=== PATIENT | female | born 1950 | race Caucasian/White ===

== ENCOUNTER → 2017-07-28 | Day surgery (SDC) | payer MEDICARE, BC ==
[~2017-07-28] MED LIST: Midazolam 1 MG/ML 2 ML SDV ONE; Propofol 200 MG/20 ML SDV ONE; Sodium Chloride 0.9% 10 ML Syringe FLUSH PRN; fentaNYL 100 MCG/2 ML SDV ONE
[2017-07-28] MEDS: Lactated Ringers 1,000 ML IV SCH (13:48)
--- NOTE | 2017-07-28 14:21 | PCM.PN ---
- General Info Date of Service: 07/28/17 - Review of Systems Systems Review Comment:: 67-year-old female referred for colonoscopy. She has unexplained anemia. She is also had recent upper endoscopy which did not reveal a source of bleeding. She has noted a recent change in bowel pattern with more loose stools and lower abdominal pain which worsens throughout the day.Her past medical history is significant for breast cancer. She is medically stable to proceed today. I have discussed the proposed colonoscopy with the patient. Risks such as but not limited to bleeding and GI injury reviewed. She appears to understand and agrees to proceed. - Patient Data Vitals - Most Recent: Last Vital Signs Temp 98.1 F 07/28/17 13:25 Pulse 80 07/28/17 13:25 Resp 16 07/28/17 13:25 BP 136/64 07/28/17 13:25 Pulse Ox 99 07/28/17 13:25 Weight - Most Recent: 94.347 kg Med Orders - Current: Current Medications Lactated Ringer's (Ringers, Lactated) 1,000 mls @ 125 mls/hr IV ASDIRECTED MICHAEL Last Admin: 07/28/17 13:48 Dose: 125 mls/hr Sodium Chloride (Saline Flush) 10 ml FLUSH ASDIRECTED PRN PRN Reason: Keep Vein Open Discontinued Medications Fentanyl (Sublimaze) Confirm Administered Dose 100 mcg .ROUTE .STK-MED ONE Stop: 07/28/17 14:15 Midazolam HCl (Versed 1 Mg/Ml) Confirm Administered Dose 2 mg .ROUTE .STK-MED ONE Stop: 07/28/17 14:15 Propofol (Diprivan 20 Ml) Confirm Administered Dose 200 mg .ROUTE .STK-MED ONE Stop: 07/28/17 14:15 - Problem List Review Problem List Initiated/Reviewed/Updated: Yes - Assessment Assessment:: anemia Change in bowel habits - Plan Plan:: colonoscopy
--- NOTE | 2017-07-28 15:10 | PCM.OPNOTE ---
- General Post-Op/Procedure Note Date of Surgery/Procedure: 07/28/17 Operative Procedure(s): colonoscopy with biopsy Findings: extensive sigmoid diverticulosis without acute inflammation Otherwise normal appearing colon Pre Op Diagnosis: anemia. Change in bowel habits Post-Op Diagnosis: Diverticulosis Anesthesia Technique: MAC Primary Surgeon: Damion Delgado Pathology: biopsies of right and left colon Output, Urine Amount: 0 EBL in mLs: 3 Complications: None Condition: Good Free Text/Narrative:: Intake & Output 07/28/17 07/28/17 07/28/17 06:59 14:59 22:59 Intake Total 900 Balance 900
[2017-07-28 15:39] VITALS: BP 120/50
--- NOTE | 2017-07-29 08:55 | OR ---
Date of Procedure: 07/28/2017 PREOPERATIVE DIAGNOSIS: Anemia. POSTOPERATIVE DIAGNOSIS: Diverticulosis. OPERATIONS PERFORMED: Colonoscopy with biopsy. INDICATIONS FOR SURGERY: This 67-year-old female was noted to have unexplained anemia with recent upper endoscopy which did not show bleeding site. She has also had some lower abdominal pain. The patient was referred for a diagnostic colonoscopy. FINDINGS: No obvious source of chronic bleeding was seen during today's exam. The patient had extensive sigmoid diverticulosis with some tortuosity of the sigmoid colon; however, this does not appear to be acutely inflamed at this time. The remainder of the colon mucosa appeared normal. There were no visible signs of inflammation, ulceration, or evidence of bleeding at this time. DESCRIPTION OF PROCEDURE: The patient was taken to the operating room. She was given intravenous sedation, and with her in the left lateral decubitus position, digital rectal exam was performed showing no rectal masses. The Olympus colonoscope was inserted into the rectum. Retroflexed examination of the rectal canal was performed. The scope was then carefully advanced under direct visualization through the entire length of the colon until the cecum was reached. It was somewhat difficult through the sigmoid region, but eventually, the colon was able to be traversed and the cecum reached. Cecal acquisition was confirmed by noting the normal internal cecal anatomy including the appendiceal orifice and ileocecal valve. After examining the cecum, the scope was slowly withdrawn sequentially re-examining the colonic segments. During withdrawal of the scope, random biopsies were taken from the left and right sides of the colon to evaluate the patient's diarrhea symptoms. After the colon had been completely examined and with no sign of any complication, the scope was removed and the patient was taken from the operating room in satisfactory condition. ESTIMATED BLOOD LOSS: 3 mL. COMPLICATIONS: None. PROGNOSIS: Good. ABI Delgado MD /[id number]
== END | disposition home or self-care (01) ==
LOC: LL.SDS 12:59
PROVIDERS: ATTEND Surgery
DX: D64.9 Anemia, unspecified (principal); R19.4 Change in bowel habit; R10.30 Lower abdominal pain, unspecified; K63.89 Other specified diseases of intestine; K57.30 Diverticulosis of large intestine without perforation or abscess without bleeding; E11.42 Type 2 diabetes mellitus with diabetic polyneuropathy; Z79.4 Long term (current) use of insulin; I10 Essential (primary) hypertension; E78.5 Hyperlipidemia, unspecified; K21.9 Gastro-esophageal reflux disease without esophagitis; E66.9 Obesity, unspecified; Z79.899 Other long term (current) drug therapy
CPT/HCPCS: 00811; J2250; J2704; J3010; J7120

== ENCOUNTER 2019-01-04 08:04 | Day surgery (SDC) | payer MEDICARE, BC ==
[~2019-01-04 08:04] MED LIST changes: +Lactated Ringers 1,000 ML IV SCH; -Midazolam 1 MG/ML 2 ML SDV ONE; -Propofol 200 MG/20 ML SDV ONE; -fentaNYL 100 MCG/2 ML SDV ONE
[2019-01-04] MEDS ORDERED: Midazolam 1 MG/ML 2 ML SDV ONE ×2 (08:32→09:01)
[2019-01-04] MEDS ORDERED: Propofol 200 MG/20 ML SDV ONE ×2 (08:33→09:01)
--- NOTE | 2019-01-04 08:59 | PCM.HPR ---
H & P Addendum review - H & P Addendum Review Date of Original H & P: 12/21/18 Date Reviewed: 01/04/19 Time Reviewed: 08:59 Patient was Examined: No Changes
--- NOTE | 2019-01-04 09:40 | PCM.OPNOTE ---
- General Post-Op/Procedure Note Date of Surgery/Procedure: 01/04/19 Operative Procedure(s): L CTR Pre Op Diagnosis: L CTS Post-Op Diagnosis: Same Anesthesia Technique: Local, MAC Primary Surgeon: Edu Fletcher Anesthesia Provider: Ana Blancas Complications: None Condition: Good
[2019-01-04 11:09] VITALS: BP 123/66; PULSE 78
--- NOTE | 2019-01-04 11:18 | OR ---
Date of Procedure: 01/04/2019 PREOPERATIVE DIAGNOSIS: Left carpal tunnel syndrome. POSTOPERATIVE DIAGNOSIS: Left carpal tunnel syndrome. PROCEDURE: Left carpal tunnel release. ANESTHESIA: Local with IV sedation. DESCRIPTION OF PROCEDURE: The patient was brought to the procedure room where IV sedation was administered. Her left upper extremity was exsanguinated and tourniquet inflated. Her hand was prepped and draped sterilely. 3 mL of 1% lidocaine were injected in the palmar crease. A routine incision was made in the skin crease over the transverse carpal ligament and extended through the subcutaneous tissue and palmar aponeurosis. The transverse carpal ligament was identified and sharply incised until the median nerve was visible. The ligament was then split distally into the palm and then proximally into the wrist. Finger palpation and inspection revealed the constricting band to be completely released. The wound was irrigated and the skin closed with interrupted 4-0 Prolene vertical mattress sutures. Antibiotic ointment and a sterile bulky pressure dressing were applied. The patient tolerated the procedure well and returned to Recovery in stable condition. BLOOD LOSS: None. ABI CRISOSTOMO MD /[id number]
== END 2019-01-04 10:50 | disposition home or self-care (01) ==
LOC: LL.SDS 08:04
PROVIDERS: ATTEND Surgery
DX: G56.02 Carpal tunnel syndrome, left upper limb (principal); I10 Essential (primary) hypertension; E11.9 Type 2 diabetes mellitus without complications; Z79.4 Long term (current) use of insulin; Z79.899 Other long term (current) drug therapy; Z79.82 Long term (current) use of aspirin
CPT/HCPCS: 01830; 64721; 82962; J2001; J2250; J2704; J7120

== ENCOUNTER 2019-03-01 08:08 | Day surgery (SDC) | payer MEDICARE, BC ==
[~2019-03-01 08:08] MED LIST changes: -Lactated Ringers 1,000 ML IV SCH; +Midazolam 1 MG/ML 2 ML SDV ONE; +Propofol 200 MG/20 ML SDV ONE; +fentaNYL 100 MCG/2 ML SDV ONE
[2019-03-01] MEDS: Lactated Ringers 1,000 ML IV SCH (08:51)
[2019-03-01] MEDS ORDERED: Propofol 200 MG/20 ML SDV ONE (09:12)
[2019-03-01] MEDS ORDERED: fentaNYL 100 MCG/2 ML SDV ONE (09:12)
[2019-03-01] MEDS ORDERED: Midazolam 1 MG/ML 2 ML SDV ONE (09:12)
--- NOTE | 2019-03-01 09:14 | PCM.HPR ---
H & P Addendum review - H & P Addendum Review Date of Original H & P: 02/20/19 Date Reviewed: 03/01/19 Time Reviewed: 09:05 Patient was Examined: No Changes
[2019-03-01] MEDS: Bacitracin Oint 1 GM U/D Packet TOP ONE (09:33)
--- NOTE | 2019-03-01 09:44 | PCM.OPNOTE ---
- General Post-Op/Procedure Note Date of Surgery/Procedure: 03/01/19 Operative Procedure(s): R CTR Pre Op Diagnosis: R CTS Post-Op Diagnosis: Same Anesthesia Technique: Local, MAC Primary Surgeon: Edu LONG in mLs: 0 Complications: None Condition: Good
--- NOTE | 2019-03-01 12:39 | OR ---
Date of Procedure: 03/01/2019 PREOPERATIVE DIAGNOSIS: Right carpal tunnel syndrome. POSTOPERATIVE DIAGNOSIS: Right carpal tunnel syndrome. PROCEDURE: Right carpal tunnel release. ANESTHESIA: Local MAC. DESCRIPTION OF PROCEDURE: The patient was brought to the procedure room where she was placed in the supine position and IV sedation administered. Right hand and forearm were exsanguinated and tourniquet inflated. Hand and forearm were prepped with ChloraPrep and draped sterilely. 2 mL of 1% lidocaine was infiltrated in the palmar crease. An incision was made in the crease over the transverse carpal ligament and extended through the subcutaneous tissue and palmar aponeurosis until the transverse carpal ligament was identified. This was sharply incised until the median nerve was visible. The ligament was split distally into the palm and then proximally into the wrist. Finger palpation and inspection revealed all constricting bands to be released. The wound was closed with interrupted 4-0 Prolene vertical mattress sutures. Antibiotic ointment and a bulky sterile pressure dressing were applied. The patient tolerated the procedure well and returned to Recovery in stable condition. ABI CRISOSTOMO MD /[id number]
[2019-03-01 15:16] VITALS: BP 144/79; PULSE 82
== END 2019-03-01 11:10 | disposition home or self-care (01) ==
LOC: LL.SDS 08:08
PROVIDERS: ATTEND Surgery
DX: G56.01 Carpal tunnel syndrome, right upper limb (principal); I10 Essential (primary) hypertension; E11.9 Type 2 diabetes mellitus without complications; L02.31 Cutaneous abscess of buttock; Z68.38 Body mass index [BMI] 38.0-38.9, adult; E66.9 Obesity, unspecified; Z79.82 Long term (current) use of aspirin; Z79.4 Long term (current) use of insulin; Z79.899 Other long term (current) drug therapy
CPT/HCPCS: 82962; J2001; J2250; J2704; J3010; J7120

== ENCOUNTER 2020-07-15 09:01 | Emergency (ER) | payer MEDICARE, BC ==
--- NOTE | 2020-07-15 09:58 | EDM.PDOC ---
ED HPI GENERAL MEDICAL PROBLEM - General Chief Complaint: Laceration Stated Complaint: Fall at home, Surgical Incision reopened Time Seen by Provider: 07/15/20 09:01 Source of Information: Reports: Patient History Limitations: Reports: No Limitations - History of Present Illness INITIAL COMMENTS - FREE TEXT/NARRATIVE: Pt. presents to ER with complaints of dehiscence of surgical incision of L knee and facial laceration post fall. Pt. states that she fell at home today, which caused the incision from a recent knee replacement to open. She also stuck her face. causing a laceration to her chin. Pt. states that she did not feel dizzy or lightheaded prior to the fall. Denies any chest pain, shortness of breath, headache. Pt. tetanus is up to date. Pt. states that she is not experiencing any ru or deep pain in he knee, and she states that she is able to bear weight. She only complains of superficial pain associated with the soft tissue injury. Onset: Today Location: Reports: Face, Lower Extremity, Left Associated Symptoms: Denies: Confusion, Chest Pain, Cough, Diaphoresis, Fever/Chills, Headaches, Malaise, Nausea/Vomiting, Seizure, Shortness of Breath, Syncope, Weakness - Related Data Allergies Allergy/AdvReac Type Severity Reaction Status Date / Time No Known Allergies Allergy Verified 07/15/20 09:26 Home Meds: Home Meds Lisinopril 2.5 mg PO BEDTIME 01/19/16 [History] Zolpidem Tartrate [Ambien Cr] 12.5 mg PO BEDTIME 01/19/16 [History] DULoxetine [Cymbalta] 60 mg PO DAILY 01/20/16 [History] Insulin Aspart [Novolog Flexpen] 40 unit SQ QAM 01/20/16 [History] atorvaSTATin [Lipitor] 20 mg PO BEDTIME 01/20/16 [History] Omeprazole 40 mg PO BEDTIME 07/22/17 [History] Anastrozole [Arimidex] 1 mg PO BEDTIME 07/28/17 [History] Aspirin [Children's Aspirin] 81 mg PO BEDTIME 07/28/17 [History] Acetaminophen [Tylenol] 650 mg PO Q4H PRN 01/03/19 [History] Docusate Sodium [Colace] 100 mg PO BEDTIME 01/03/19 [History] Dulaglutide [Trulicity] 1.5 mg SQ Q7D 01/03/19 [History] Insulin Degludec [Tresiba] 84 unit SQ BEDTIME 01/03/19 [History] Levothyroxine [Synthroid] 50 mcg PO ACBREAKFAST 01/03/19 [History] polyethylene glycoL 3350 [MiraLAX] 17 gm PO BEDTIME PRN 01/03/19 [History] Insulin Aspart [NovoLOG] 20 units SUBCUT DAILY@1800 01/04/19 [History] sitaGLIPtin Phos/Metformin HCl [Janumet 50-1,000 MG] 1 tab PO DAILY 03/01/19 [History] traMADol [Ultram] 50 mg PO TID PRN 03/01/19 [History] Insulin Aspart [NovoLOG] 30 units SUBCUT DAILY@1200 07/15/20 [History] Pregabalin [Lyrica] 200 mg PO TID 07/15/20 [History] Past Medical History HEENT History: Reports: Other (See Below) Other HEENT History: wears reading glasses Cardiovascular History: Reports: High Cholesterol, Hypertension Respiratory History: Reports: Sleep Apnea Gastrointestinal History: Reports: Chronic Constipation, GERD Genitourinary History: Reports: None POWDER MIXER History: Reports: Other (See Below) Other POWDER MIXER History: menopause Musculoskeletal History: Reports: Back Pain, Chronic Other Musculoskeletal History: Chronic hip and knee pain Neurological History: Reports: Neuropathy, Diabetic Psychiatric History: Reports: Other (See Below) Other Psychiatric History: insomnia Endocrine/Metabolic History: Reports: Diabetes, Type II, Obesity/BMI 30+ Hematologic History: Reports: None Immunologic History: Reports: None Oncologic (Cancer) History: Reports: Breast Other Oncologic History: left breast ductal carcinoma, radiation therapy Dermatologic History: Reports: None Other Dermatologic History: pt reports having red spots that covered her whole body for months, unable to diagnosis by dermatololgist - Past Surgical History GI Surgical History: Reports: Colonoscopy Female Surgical History: Reports: Breast Biopsy, Tubal Ligation Social & Family History - Caffeine Use Caffeine Use: Reports: None ED ROS GENERAL - Review of Systems Review Of Systems: See Below Constitutional: Reports: No Symptoms HEENT: Reports: Other (chin laceration) Respiratory: Reports: No Symptoms Cardiovascular: Reports: No Symptoms Endocrine: Reports: No Symptoms GI/Abdominal: Reports: No Symptoms : Reports: No Symptoms Musculoskeletal: Reports: Other (see HPI) Skin: Reports: Other (See HPI) Neurological: Reports: No Symptoms Psychiatric: Reports: No Symptoms Hematologic/Lymphatic: Reports: No Symptoms Immunologic: Reports: No Symptoms ED EXAM, SKIN/RASH Exam: See Below Exam Limited By: No Limitations General Appearance: Alert, WD/WN, No Apparent Distress Eye Exam: Bilateral Eye: EOMI, PERRL Throat/Mouth: Normal Inspection, Normal Lips, Normal Teeth, Normal Gums, Normal Oropharynx, Normal Voice, No Airway Compromise Head: Other (Pt. has a 2 cm laceration to bottom of chin. No obvious trauma to underlying structures. No malocclusion or crepitus noted. ) Neck: Normal Inspection, Supple, Non-Tender, Full Range of Motion Respiratory/Chest: No Respiratory Distress, Lungs Clear Cardiovascular: Normal Peripheral Pulses, Regular Rate, Rhythm, No Edema, No JVD, No Murmur Peripheral Pulses: 4+: Radial (R) GI/Abdominal: Soft, Non-Tender, No Distention, No Mass (Female) Exam: Deferred Rectal (Female) Exam: Deferred Back Exam: Normal Inspection, Full Range of Motion Extremities: Other (Traumatic dehiescense of surgical incision on left anterior knee. No obvious underlying ru deformity. CMS intact. Pt. is able to weight bear.) Neurological: Alert, Oriented, CN II-XII Intact, Normal Cognition, Normal Gait, Normal Reflexes, No Motor/Sensory Deficits Psychiatric: Normal Affect, Normal Mood Skin: Warm, Dry, Intact, Normal Color, No Rash ED SKIN PROCEDURES - Laceration/Wound Repair Face Appearance: Subcutaneous Anesthetic Type: Local Local Anesthesia - Lidocaine (Xylocaine): 1% Plain Local Anesthetic Volume: 3cc Skin Prep: Providone-Iodine (Betadine), Saline, Sterile Drape Exploration/Debridement/Repair: Wound Explored, Explored to Base Closed with: Sutures Lac/Wound length In cm: 2 Suture Size: 5-0 # of Sutures: 2 Course - Vital Signs Last Recorded V/S: Last Vital Signs Temp 37.2 C 07/15/20 09:20 Pulse 75 07/15/20 09:20 Resp 18 07/15/20 09:20 BP 159/78 H 07/15/20 09:20 Pulse Ox 95 07/15/20 09:20 - Orders/Labs/Meds Orders: Active Orders 24 hr Category Date Time Status Peripheral IV Care [RC] . DIRECTED Care 07/15/20 10:18 Active Head wo Cont [CT] Stat Exams 07/15/20 09:09 Taken Sodium Chloride 0.9% [Saline Flush] Med 07/15/20 10:18 Active 10 ml FLUSH ASDIRECTED PRN Peripheral IV Insertion Adult [OM.PC] Routine Oth 07/15/20 10:18 Ordered Medication Orders Sodium Chloride (Sodium Chloride 0.9% 10 Ml Syringe) 10 ml FLUSH ASDIRECTED PRN PRN Reason: Keep Vein Open Meds: Medications Generic Name Dose Route Start Last Admin Trade Name Freq PRN Reason Stop Dose Admin Sodium Chloride 10 ml 07/15/20 10:18 Sodium Chloride 0.9% 10 Ml Syringe FLUSH ASDIRECTED PRN Keep Vein Open Discontinued Medications Generic Name Dose Route Start Last Admin Trade Name Freq PRN Reason Stop Dose Admin Cefazolin Sodium 2 gm/ Sodium 100 mls @ 200 mls/hr 07/15/20 10:19 07/15/20 10:45 Chloride IV 07/15/20 10:48 Not Given ONETIME ONE Cefazolin Sodium/Dextrose 50 mls @ 100 mls/hr 07/15/20 10:35 07/15/20 10:44 Ancef 2 Gm/50 Ml IV 07/15/20 11:04 100 mls/hr ONETIME ONE Administration Lidocaine HCl 5 ml 07/15/20 09:08 07/15/20 09:21 Lidocaine 1% 5 Ml Sdv INJECT 07/15/20 09:09 5 ml ONETIME ONE Administration Departure - Departure Time of Disposition: 12:00 Disposition: Home, Self-Care 01 Clinical Impression: Dehiscence of external surgical wound, Facial laceration - Discharge Information Instructions: Laceration Care, Adult Referrals: Susanna Ness PA [Primary Care Provider] - Forms: ED Department Discharge Additional Instructions: Keep dressing that was placed in ER on until you are seen at [facility]. Keflex 500mg 1 tab 4 times a day for 7 days. You can take your first dose in 8 hours. Tramadol 50mg 1 tab every 4-6 hours as needed for pain [facility] will be in contact with you regarding surgery tomorrow. No eating after midnight. Sutures out of chin in 12 days. Keep dry for 24 hours. Return if you notice any redness, swelling, or discharge from the area. Your CT scan was negative. It was transmitted to [facility] in [place], however. Please call if you have any questions. Sepsis Event Note (ED) - Focused Exam Vital Signs: Vital Signs Temp Pulse Resp BP Pulse Ox 07/15/20 09:20 37.2 C 75 18 159/78 H 95 - Problem List Review Problem List Initiated/Reviewed/Updated: Yes - My Orders Last 24 Hours: My Active Orders 07/15/20 09:09 Head wo Cont [CT] Stat 07/15/20 10:18 Peripheral IV Care [RC] . DIRECTED Sodium Chloride 0.9% [Saline Flush] 10 ml FLUSH ASDIRECTED PRN Peripheral IV Insertion Adult [OM.PC] Routine - Assessment/Plan Last 24 Hours: My Active Orders 07/15/20 09:09 Head wo Cont [CT] Stat 07/15/20 10:18 Peripheral IV Care [RC] . DIRECTED Sodium Chloride 0.9% [Saline Flush] 10 ml FLUSH ASDIRECTED PRN Peripheral IV Insertion Adult [OM.PC] Routine Plan: Keep dressing that was placed in ER on until you are seen at [facility]. Keflex 500mg 1 tab 4 times a day for 7 days. You can take your first dose in 8 hours. Tramadol 50mg 1 tab every 4-6 hours as needed for pain [facility] will be in contact with you regarding surgery tomorrow. No eating after midnight. Sutures out of chin in 12 days. Keep dry for 24 hours. Return if you notice any redness, swelling, or discharge from the area. Your CT scan was negative. It was transmitted to [facility] in [place], however. Please call if you have any questions.
[2020-07-15] MEDS ORDERED: Sodium Chloride 0.9% 10 ML Syringe FLUSH PRN (10:18)
[2020-07-15] MEDS ORDERED: ceFAZolin 2 GM in Sodium Chloride 0.9% 100 ML IV ONE (10:19)
[2020-07-15 11:09] VITALS: BP 159/78; PULSE 75
== END 2020-07-15 12:20 | disposition home or self-care (01) ==
LOC: LL.ED 09:01
DX: S01.81XA Laceration without foreign body of other part of head, initial encounter (principal); T81.30XA Disruption of wound, unspecified, initial encounter; E78.00 Pure hypercholesterolemia, unspecified; I10 Essential (primary) hypertension; K21.9 Gastro-esophageal reflux disease without esophagitis; E11.9 Type 2 diabetes mellitus without complications; E66.9 Obesity, unspecified; Z68.37 Body mass index [BMI] 37.0-37.9, adult; Z79.82 Long term (current) use of aspirin; Z79.4 Long term (current) use of insulin; Z79.899 Other long term (current) drug therapy; W18.09XA Striking against other object with subsequent fall, initial encounter; W26.8XXA Contact with other sharp object(s), not elsewhere classified, initial encounter; Y92.009 Unspecified place in unspecified non-institutional (private) residence as the place of occurrence of the external cause
CPT/HCPCS: 12011; 70450; 96374; 99283; 99284-25; J0690

== ENCOUNTER 2021-03-06 15:39 | Observation (INO) | payer BC, MEDICARE ==
[2021-03-06] MEDS ORDERED: Sodium Chloride 0.9% 10 ML Syringe FLUSH PRN (15:49)
[2021-03-06 16:39] LABS: ANION GAP 8.7 meq/L (7-15); CHLORIDE,CL 103 mmol/L (98-107); SODIUM,NA 139 mmol/L (136-145)
[2021-03-06] MEDS ORDERED: Acetaminophen 500 MG Tab PO PRN (21:42)
[2021-03-06] MEDS ORDERED: oxyCODONE 5 MG Tab PO PRN (21:42)
[2021-03-06] MEDS ORDERED: Non-Formulary Medication 1 Each (Dulaglutide [Trulicity] 1.5 MG/0.5 ML Pen) SQ SCH (21:45)
[2021-03-07] MEDS ORDERED: Calcium Carbonate 500 MG Tablet PO SCH (08:00)
[2021-03-07] MEDS ORDERED: Non-Formulary Medication 1 Each (Insulin Aspart 100 UNIT/ML Insuln.Pen) SQ SCH (08:00)
[2021-03-07] MEDS ORDERED: Non-Formulary Medication 1 Each (Lifitegrast [Xiidra] 1 EACH Droperette) EYEBOTH SCH (08:00)
[2021-03-07] MEDS ORDERED: Glucagon,Human Recombinant 1 MG Vial IM PRN (08:42)
[2021-03-07] MEDS ORDERED: 50% Dextrose in Water 50 ML Syringe IVPUSH PRN (08:42)
[2021-03-07] MEDS: Calcium Carbonate 500 MG Tab.Chew PO SCH (09:47)
[2021-03-07] MEDS: Polyethylene Glycol 3350 Powder 17 GM Packet PO SCH (09:47)
[2021-03-07] MEDS: Levothyroxine 50 MCG Tab PO SCH (09:48)
[2021-03-07] MEDS: Pregabalin 100 MG Cap PO SCH ×3 (09:48→17:33)
[2021-03-07] MEDS: Omeprazole 20 MG Cap.CR PO SCH (09:48)
[2021-03-07] MEDS: DULoxetine 30 MG Cap PO SCH (09:48)
[2021-03-07] MEDS: Oxybutynin 5 MG Tab.ER PO SCH ×2 (09:49→17:33)
[2021-03-07] MEDS: Cyanocobalamin (Vitamin B12) 250 MCG Tab PO SCH (09:49)
[2021-03-07] MEDS: Multivitamin Tab PO SCH (09:49)
[2021-03-07] MEDS: Aspirin 325 MG Tab.EC PO SCH (09:49)
[2021-03-07] MEDS: Vitamin E (dl-alpha-tocopherol acetate) 400 Unit Cap PO SCH (09:49)
[2021-03-07] MEDS: Ascorbic Acid 500 MG Tab PO SCH (09:49)
[2021-03-07] MEDS: Lisinopril 5 MG Tab PO SCH (09:53)
[2021-03-07] MEDS: Insulin Regular, Human 100 Units/ML 3 ML Vial SUBCUT SCH ×3 (09:56→17:32)
[2021-03-07] MEDS ORDERED: Insulin Lispro 100 Units/ML 3 ML Vial SUBCUT SCH ×2 (12:00→18:00)
[2021-03-07] MEDS ORDERED: atorvaSTATin 10 MG Tab PO SCH (20:00)
[2021-03-07] MEDS ORDERED: Ferrous Sulfate 325 MG Tab PO SCH (20:00)
[2021-03-07] MEDS ORDERED: Non-Formulary Medication 1 Each (Insulin Degludec [Tresiba] 100 UNIT/ML Vial) SQ SCH (20:00)
[2021-03-08] MEDS: Calcium Carbonate 500 MG Tab.Chew PO SCH (08:49)
[2021-03-08] MEDS: Levothyroxine 50 MCG Tab PO SCH (08:49)
[2021-03-08] MEDS: Polyethylene Glycol 3350 Powder 17 GM Packet PO SCH (08:50)
[2021-03-08] MEDS: Oxybutynin 5 MG Tab.ER PO SCH (08:50)
[2021-03-08] MEDS: Pregabalin 100 MG Cap PO SCH ×2 (08:51→13:21)
[2021-03-08] MEDS: Ascorbic Acid 500 MG Tab PO SCH (08:51)
[2021-03-08] MEDS: DULoxetine 30 MG Cap PO SCH (08:51)
[2021-03-08] MEDS: Omeprazole 20 MG Cap.CR PO SCH (08:53)
[2021-03-08] MEDS: Vitamin E (dl-alpha-tocopherol acetate) 400 Unit Cap PO SCH (08:54)
[2021-03-08] MEDS: Aspirin 325 MG Tab.EC PO SCH (08:54)
[2021-03-08] MEDS: Multivitamin Tab PO SCH (08:54)
[2021-03-08] MEDS: Lisinopril 5 MG Tab PO SCH (08:56)
[2021-03-08 09:03] VITALS: BP 130/72
[2021-03-08] MEDS: Cyanocobalamin (Vitamin B12) 250 MCG Tab PO SCH (09:19)
[2021-03-08] MEDS: Insulin Regular, Human 100 Units/ML 3 ML Vial SUBCUT SCH ×2 (09:25→13:21)
[2021-03-08 10:30] LABS: ANION GAP 9.2 meq/L (7-15); CHLORIDE,CL 103 mmol/L (98-107); SODIUM,NA 141 mmol/L (136-145)
[2021-03-08 11:12] VITALS: PULSE 74
== END 2021-03-08 12:27 | disposition home or self-care (01) ==
LOC: LL.ED 15:39 → LL.MS 19:35
PROVIDERS: ADMIT Nurse Practitioner Family; ATTEND Nurse Practitioner Family
DX: R41.0 Disorientation, unspecified (principal); R53.1 Weakness; R29.6 Repeated falls; E11.9 Type 2 diabetes mellitus without complications; E66.9 Obesity, unspecified; E78.00 Pure hypercholesterolemia, unspecified; I10 Essential (primary) hypertension; G47.30 Sleep apnea, unspecified; Z79.4 Long term (current) use of insulin; Z96.642 Presence of left artificial hip joint; Z98.890 Other specified postprocedural states; Z79.899 Other long term (current) drug therapy
CPT/HCPCS: 36415; 70450; 80053; 81001; 82947; 83735; 84100; 84484; 85025; 85610; 93005; 99285-25; A9270-GY; G0378; J1815-GY

== ENCOUNTER 2024-02-21 12:19 | Emergency (ER) | payer MEDICARE ==
[2024-02-21 12:57] LABS: BASOPHILS ABSOLUTE AUTO 0.03 K/uL (0.00-0.20); BASOPHILS PERCENT AUTO 0.3 % (0.0-2.0); EOSINOPHILS ABSOLUTE AUTO 0.12 K/uL (0.00-0.50); EOSINOPHILS PERCENT AUTO 1.2 % (0.0-5.0); HEMATOCRIT 36.1 % (34.0-46.0); HEMOGLOBIN 10.8 g/dL (11.7-15.5); IMMATURE GRAN ABSOLUTE AUTO 0.04 10^3/uL (0.00-0.04); IMMATURE GRAN PERCENT AUTO 0.4 % (0.0-0.4); LYMPHOCYTES ABSOLUTE AUTO 0.39 K/uL (0.50-3.50); LYMPHOCYTES PERCENT AUTO 3.9 % (10.0-50.0); MEAN CORPUSCULAR HEMOGLOBIN 24.6 pg (28.2-33.3); MEAN CORPUSCULAR HGB CONC 29.9 g/dL (31.7-36.0); MEAN CORPUSCULAR VOLUME 82.2 fL (84.0-98.0); MONOCYTES ABSOLUTE AUTO 0.73 K/uL (0.00-1.00); MONOCYTES PERCENT AUTO 7.3 % (2.0-14.0); NEUTROPHILS ABSOLUTE AUTO 8.69 K/uL (1.40-7.00); NEUTROPHILS PERCENT AUTO 86.9 % (45.0-80.0); PLATELET COUNT,PLT 241 K/uL (150-350); RED BLOOD CELL COUNT 4.39 M/uL (3.77-5.09); RED CELL DISTRIBUTION WIDTH 16.4 % (11.2-14.1)
[2024-02-21] MEDS: Sodium Chloride 0.9% 10 ML Syringe FLUSH PRN (13:13)
[2024-02-21] MEDS: Sodium Chloride 0.9% 1,000 ML IV ONE ×3 (13:14→18:43)
[2024-02-21 13:30] LABS: ALBUMIN 2.8 g/dL (3.4-5.0); ANION GAP 11.3 meq/L (7-15); BILIRUBIN TOTAL 4.1 mg/dL (0.2-1.0); CALCIUM 8.5 mg/dL (8.5-10.1); CARBON DIOXIDE,CO2 25.7 mmol/L (21.0-32.0); CREATININE 2.53 mg/dL (0.51-1.17); EST CRCL DRUG DOSING (CG) 15.39 mL/min; MAGNESIUM 2.8 mg/dL (1.8-2.4); POTASSIUM,K 3.9 mmol/L (3.5-5.1)
[2024-02-21 15:29] LABS: PROTEIN TOTAL,TP 6.6 g/dL (6.4-8.2)
[2024-02-21 17:21] LABS: CREATININE 2.28 mg/dL (0.51-1.17)
[2024-02-21] MEDS ORDERED: Iopamidol 755 Mg/ML 100 ML Bottle IVPUSH ONE (17:25)
[2024-02-21 17:26] LABS: EST CRCL DRUG DOSING (CG) 20.73 mL/min
[2024-02-21 18:18] LABS: APPEARANCE,URINE CLOUDY; BILIRUBIN,URINE SMALL (NEGATIVE); COLOR,URINE YELLOW; GLUCOSE,URINE NEGATIVE (NEGATIVE); KETONES,URINE NEGATIVE (NEGATIVE); LEUKOCYTE ESTERASE,URINE LARGE (NEGATIVE); NITRITE,URINE POSITIVE (NEGATIVE); OCCULT BLOOD,URINE MODERATE (NEGATIVE); PH,URINE 5.5 (5.0-9.0); PROTEIN,URINE 100 mg/dL (NEGATIVE)
[2024-02-21 18:19] LABS: BACTERIA,URINE MANY /HPF (NONE TO FEW); EPITHELIAL CELLS,URINE FEW /LPF; MUCUS,URINE OCCASIONAL /LPF (NEGATIVE); WBC,URINE 50-75 /HPF
[2024-02-21] MEDS: cefTRIAXone 1 GM Vial IVPUSH ONE (18:51)
[2024-02-21] MEDS: Heparin Sodium 5,000 Units/ML Vial IVPUSH ONE (18:55)
[2024-02-21] MEDS: Heparin Sodium/0.45% NaCl 500 ML IV SCH (18:58)
[2024-02-21 19:03] VITALS: BP 96/57; PULSE 118
== END 2024-02-21 19:30 ==
LOC: LL.ED 12:19 → SUPCPDRO 12:19 → LL.ED 19:30
DX: I26.94 Multiple subsegmental thrombotic pulmonary emboli without acute cor pulmonale (principal); N39.0 Urinary tract infection, site not specified; I10 Essential (primary) hypertension; K21.9 Gastro-esophageal reflux disease without esophagitis; E78.00 Pure hypercholesterolemia, unspecified; E66.9 Obesity, unspecified; E11.9 Type 2 diabetes mellitus without complications; Z79.82 Long term (current) use of aspirin; Z79.4 Long term (current) use of insulin; Z79.890 Hormone replacement therapy; Z79.899 Other long term (current) drug therapy; Z68.38 Body mass index [BMI] 38.0-38.9, adult
CPT/HCPCS: 36415; 71046; 71275; 80053; 81001; 82565; 83605; 83735; 83880; 84484; 85025; 85379; 85730; 86705; 86709; 86803; 87040; 87340; 87428-QW; 93005; 96361; 96365; 96375; 99285-25; J0696; J1644; J7030

== ENCOUNTER 2024-07-12 08:55 | Day surgery (SDC) | payer MEDICARE ==
[~2024-07-12 08:55] MED LIST changes: -fentaNYL 100 MCG/2 ML SDV ONE
[2024-07-12] MEDS: Lactated Ringers 1,000 ML IV SCH (09:39)
[2024-07-12] MEDS ORDERED: Glycopyrrolate 0.2 MG/ML SDV IVPUSH ONE (10:30)
[2024-07-12] MEDS ORDERED: Propofol 200 MG/20 ML SDV ONE (11:16)
[2024-07-12 13:35] VITALS: BP 136/61; PULSE 67
== END 2024-07-12 12:15 | disposition home or self-care (01) ==
LOC: LL.SDS 08:55
PROVIDERS: ATTEND Surgery
DX: D50.9 Iron deficiency anemia, unspecified (principal); K29.50 Unspecified chronic gastritis without bleeding; K57.30 Diverticulosis of large intestine without perforation or abscess without bleeding; I85.00 Esophageal varices without bleeding; Z86.0100 Personal history of colon polyps, unspecified
CPT/HCPCS: 00813; 82947; J1596; J2250; J2704; J7120

== ENCOUNTER 2025-01-27 17:54 | Emergency (ER) | payer MEDICARE ==
[2025-01-27 18:16] VITALS: BP 158/71; PULSE 67
[2025-01-27] MEDS: Ondansetron 4 MG Tab.DIS PO ONE (18:47)
[2025-01-27] MEDS: Acetaminophen/HYDROcodone 325-10 MG Tab PO ONE (18:48)
[2025-01-27] MEDS: Promethazine 25 MG/ML SDV IM ONE (19:10)
[2025-01-27] MEDS: Sodium Chloride 0.9% 10 ML Syringe FLUSH PRN (20:10)
[2025-01-27] MEDS: Lactated Ringers 1,000 ML IV SCH (20:16)
[2025-01-27 20:20] LABS: BASOPHILS ABSOLUTE AUTO 0.03 K/uL (0.00-0.20); BASOPHILS PERCENT AUTO 0.4 % (0.0-2.0); EOSINOPHILS ABSOLUTE AUTO 0.08 K/uL (0.00-0.50); EOSINOPHILS PERCENT AUTO 1.1 % (0.0-5.0); IMMATURE GRAN ABSOLUTE AUTO 0.01 10^3/uL (0.00-0.04); IMMATURE GRAN PERCENT AUTO 0.1 % (0.0-0.4); LYMPHOCYTES ABSOLUTE AUTO 1.00 K/uL (0.50-3.50); LYMPHOCYTES PERCENT AUTO 13.8 % (10.0-50.0); MONOCYTES ABSOLUTE AUTO 0.72 K/uL (0.00-1.00); MONOCYTES PERCENT AUTO 9.9 % (2.0-14.0); NEUTROPHILS ABSOLUTE AUTO 5.41 K/uL (1.40-7.00); NEUTROPHILS PERCENT AUTO 74.7 % (45.0-80.0); PLATELET COUNT,PLT 192 K/uL (150-350); RED BLOOD CELL COUNT 4.75 M/uL (3.77-5.09); RED CELL DISTRIBUTION WIDTH 11.8 % (11.2-14.1); WHITE BLOOD CELL COUNT,WBC 7.3 K/uL (4.0-10.2)
[2025-01-27 20:41] LABS: INR 1.1 (0.9-1.1); PTT,PARTIAL THROMBOPLSTIN TIME 26.3 SEC (23.8-34.4)
[2025-01-27 20:44] LABS: LACTIC ACID 2.0 mmol/L (0.4-2.0)
[2025-01-27 20:53] LABS: ALANINE AMINOTRANSFERASE,ALT 50.0 U/L (12-78); ASPARTATE AMNIOTRANSFERASE,AST 38.0 U/L (15-37); BILIRUBIN TOTAL 0.8 mg/dL (0.2-1.0); BLOOD UREA NITROGEN,BUN 13.0 mg/dL (7-18); CARBON DIOXIDE,CO2 30.1 mmol/L (21.0-32.0); CHLORIDE,CL 99.0 mmol/L (98-107); CREATININE 0.95 mg/dL (0.51-1.17); EST CRCL DRUG DOSING (CG) 48.99 mL/min; ESTIMATED GFR 62.0 mL/min (>=60); GLUCOSE RANDOM 168.0 mg/dL (70-99); POTASSIUM,K 4.1 mmol/L (3.5-5.1); PROTEIN TOTAL,TP 7.9 g/dL (6.4-8.2); SODIUM,NA 139.0 mmol/L (136-145)
[2025-01-27] MEDS: Iopamidol 612 MG/ML 100 ML Bottle IVPUSH ONE (20:58)
[2025-01-27 21:06] LABS: GLUCOSE,URINE NEGATIVE (NEGATIVE); OCCULT BLOOD,URINE TRACE-INTACT (NEGATIVE)
[2025-01-27 21:11] LABS: APPEARANCE,URINE CLOUDY
[2025-01-27] MEDS: Ketorolac 15 MG/ML SDV IVPUSH SCH (22:24)
[2025-01-27] MEDS: Take Home: Acetaminophen/HYDROcodone 325-5 MG, 5 Tab Pack PO ONE (22:26)
[2025-01-27] MEDS: Take Home: Ondansetron 4 MG Tab.DIS, 5 Tab Pack PO ONE (22:26)
== END 2025-01-27 22:35 | disposition home or self-care (01) ==
LOC: LL.ED 17:54 → SUPCPDRO 17:54 → LL.ED 22:35
DX: K82.9 Disease of gallbladder, unspecified (principal); E86.0 Dehydration; I10 Essential (primary) hypertension; E78.00 Pure hypercholesterolemia, unspecified; K21.9 Gastro-esophageal reflux disease without esophagitis; E11.9 Type 2 diabetes mellitus without complications; E66.9 Obesity, unspecified; Z68.34 Body mass index [BMI] 34.0-34.9, adult; Z79.82 Long term (current) use of aspirin; Z79.890 Hormone replacement therapy; Z79.899 Other long term (current) drug therapy
CPT/HCPCS: 36415; 74177; 80053; 81001; 83605; 83735; 85025; 85610; 85730; 86140; 94761; 96361; 96372; 96374; 96375; 99284; 99284-25; A9270-GY; J1171; J1885; J2550; J2765; J7120; Q0162; Q9967